=== PATIENT | female | born 1955 | race Caucasian/White ===

== ENCOUNTER 2022-11-01 09:54 | Outpatient (CLI) | payer MEDICARE, BC, SELFPAY ==
--- NOTE | 2022-11-01 10:15 | CRLHL7_ITS ---
For Patients: As a result of the Century Cures Act, medical imaging exams and procedure reports are released immediately into your electronic medical record. You may view this report before your referring provider. If you have questions, please contact your health care provider. BILATERAL SCREENING MAMMOGRAM WITH COMPUTER-AIDED DETECTION AND TOMOSYNTHESIS TECHNIQUE: CC and MLO views were obtained. These mammographic images have been obtained using full-field digital technique. These mammographic images were interpreted with the benefit of computer-aided detection. Breast Tomosynthesis was used in this interpretation. COMPARISON FILM: 09/28/20, 05/17/10. FINDINGS: There are scattered areas of fibroglandular density IMPRESSION: There is no radiographic evidence for malignancy. ASSESSMENT: BI-RADS Category 2: Benign RECOMMENDATION: Routine screening mammogram in 1 year. A lay language report of this examination will be provided to the patient. Aamir De Jesus M.D. Diagnostic Radiologist [email or web address] JACK/evelio Transcribed: 3:12 p.angel fraser/Dictated by: Aamir De Jesus MD @ 11/01/2022 10:56:00 AM (Electronically Signed)
== END 2022-11-01 09:55 | disposition home or self-care (01) ==
PROVIDERS: PCP Family Medicine; Visit Provider Family Medicine
DX: Z12.31 Encounter for screening mammogram for malignant neoplasm of breast (principal)
CPT/HCPCS: 77063; 77067

== ENCOUNTER 2023-07-17 10:28 | Outpatient (CLI) | payer MEDICARE, BC, SELFPAY | END 2023-07-17 10:29 | disposition home or self-care (01) | LOC: NFLDREF 08-06 14:39 | PROVIDERS: PCP Family Medicine; Referring Provider Family Medicine; Visit Provider Family Medicine | DX: E11.9 Type 2 diabetes mellitus without complications (principal); I10 Essential (primary) hypertension; E78.00 Pure hypercholesterolemia, unspecified; Z79.84 Long term (current) use of oral hypoglycemic drugs; Z13.29 Encounter for screening for other suspected endocrine disorder | CPT/HCPCS: 80053; 80061; 82043; 82570; 84443 ==

== ENCOUNTER 2023-10-12 08:42 | Outpatient (CLI) | payer MEDICARE, BC, SELFPAY | END 2023-10-12 08:43 | disposition home or self-care (01) | LOC: NFLDREF 10-14 10:10 | PROVIDERS: PCP Family Medicine; Referring Provider Family Medicine; Visit Provider Family Medicine | DX: E11.9 Type 2 diabetes mellitus without complications (principal); M81.0 Age-related osteoporosis without current pathological fracture; E83.52 Hypercalcemia; Z79.84 Long term (current) use of oral hypoglycemic drugs | CPT/HCPCS: 80053; 82306; 83970 ==

== ENCOUNTER 2023-11-06 08:51 | Outpatient (CLI) | payer MEDICARE, BC, SELFPAY ==
--- NOTE | 2023-11-06 09:15 | CRLHL7_ITS ---
For Patients: As a result of the Cures Act, medical imaging exams and procedure reports are released immediately into your electronic medical record. You may view this report before your referring provider. If you have questions, please contact your health care provider. BILATERAL SCREENING MAMMOGRAM WITH COMPUTER-AIDED DETECTION AND TOMOSYNTHESIS TECHNIQUE: CC and MLO views were obtained. These mammographic images have been obtained using full-field digital technique. These mammographic images were interpreted with the benefit of computer-aided detection. Breast Tomosynthesis was used in this interpretation. COMPARISON FILM: 11/01/22, 09/28/20, 05/17/10. FINDINGS: There are scattered areas of fibroglandular density IMPRESSION: There is no radiographic evidence for malignancy. ASSESSMENT: BI-RADS Category 1: Negative RECOMMENDATION: Routine screening mammogram in 1 year. A lay language report of this examination will be provided to the patient. Aamir De Jesus M.D. Diagnostic Radiologist [email or web address] JACK/evelio Transcribed: 1:59 p.mMatias fraser/Dictated by: Aamir De Jesus MD @ 11/06/2023 11:02:00 AM (Electronically Signed)
--- NOTE | 2023-11-06 09:45 | CRLHL7_ITS ---
For Patients: As a result of the Century Cures Act, medical imaging exams and procedure reports are released immediately into your electronic medical record. You may view this report before your referring provider. If you have questions, please contact your health care provider. DXA BONE MINERAL DENSITY STUDY Reason for exam: Screening. Current height (in): 65. Weight (lb): 250. Menopause age: 52. Ethnicity: White. 1. Have you had a previous hip or vertebral fracture? No. 2. Have you had any fractures during your adult life which did not result from significant trauma (e.g., auto accident)? No. 3. Did either of your parents have a hip fracture? Yes. 4. Do you smoke? No. 5. Have you ever taken Glucocorticoids? No. 6. Do you have rheumatoid arthritis? No. 7. Do you have secondary osteoporosis? No. 8. Do you drink 3 or more alcoholic drinks per day? No. 9. Are you being treated for osteoporosis? No. 10. Have you ever taken any of the following medications: Actonel, Evista, Fosamax, Miacalcin, Reclast, Boniva, Forteo, HRT (i.e., estrogen/hormone therapy), Protelos, Prolia, Vitamin D, Calcium, other ??? please specify. ANSWER: Yes, vitamin D. 11. Do you have any of the following medical conditions: Anorexia or bulimia, asthma or emphysema, end stage renal disease, hyperparathyroidism, any seizure disorders, cancer, inflammatory bowel diseases, hysterectomy, other ??? please specify. ANSWER: No. 12. What was your maximum height (inches)? 66. 13. Do you perform weight bearing exercise regularly? No. 14. Do you regularly consume dairy products? Yes. 15. Do you drink caffeinated beverages? No. 16. At what age did your period start? 14. 17. Are you premenopausal? No. 18. How many full-term pregnancies have you had? 5. 19. Have you ever missed your period for more than 6 months in a row (not including or menopause)? No. TECHNIQUE: Bone mineral density study was performed using the [employer]. FINDINGS: The results of the study expressed as bone mineral density (BMD) are as follows: Lumbar spine L1 to L4: BMD: 1.466 g/cm2. T-score: 3.8. Z-score: 5.7 Neck Left: BMD: 0.874 g/cm2. T-score: 0.2. Z-score: 1.8 Right: BMD: 0.839 g/cm2. T-score: -0.1. Z-score: 1.5 Total Left: BMD: 1.132 g/cm2. T-score: 1.6. Z-score: 2.9 Right: BMD: 1.045 g/cm2. T-score: 0.8. Z-score: 2.2 IMPRESSION: Normal bone density. *Comparison exams done prior to 09/2019 were performed on different unit, Right90. Aamir De Jesus M.D. Diagnostic Radiologist [email or web address] JACK/evelio fraser/Dictated by: Aamir De Jesus MD @ 11/06/2023 11:30:00 AM (Electronically Signed)
== END 2023-11-06 08:52 | disposition home or self-care (01) ==
LOC: MAMMO 08:52
PROVIDERS: PCP Family Medicine; Visit Provider Family Medicine
DX: Z12.31 Encounter for screening mammogram for malignant neoplasm of breast (principal); Z13.820 Encounter for screening for osteoporosis; Z78.0 Asymptomatic menopausal state
CPT/HCPCS: 77063; 77067; 77080

== ENCOUNTER 2023-12-20 11:50 | Outpatient (CLI) | payer MEDICARE, BC, SELFPAY ==
--- NOTE | 2023-12-20 12:26 | W.ANESCHARGE ---
Anesthesia Charges Start Date/Time Anesthesia Start Date: 12/20/23 Anesthesia Start Time: 13:00 Stop Date/Time Anesthesia Stop Date: 12/20/23 Anesthesia Stop Time: 13:51
--- NOTE | 2023-12-20 13:55 | W.ANESCHARGE ---
Anesthesia Charges Start Date/Time Anesthesia Start Date: 12/20/23 Anesthesia Start Time: 13:00 Stop Date/Time Anesthesia Stop Date: 12/20/23 Anesthesia Stop Time: 13:51
== END 2023-12-20 11:51 | disposition home or self-care (01) ==
LOC: OP CLINIC 11:51
PROVIDERS: PCP Family Medicine; Visit Provider Surgery
DX: R19.5 Other fecal abnormalities (principal); K63.89 Other specified diseases of intestine; D12.2 Benign neoplasm of ascending colon; D12.3 Benign neoplasm of transverse colon; D12.4 Benign neoplasm of descending colon; D12.7 Benign neoplasm of rectosigmoid junction
CPT/HCPCS: 00811; 45380; 45385; 88305; J2371; J2704; J3490

== ENCOUNTER 2024-01-22 08:38 | Outpatient (CLI) | payer MEDICARE, BC, SELFPAY | END 2024-01-22 08:39 | disposition home or self-care (01) | LOC: NFLDREF 01-23 10:12 | PROVIDERS: PCP Family Medicine; Referring Provider Family Medicine; Visit Provider Family Medicine | DX: E11.65 Type 2 diabetes mellitus with hyperglycemia (principal); I10 Essential (primary) hypertension | CPT/HCPCS: 80053 ==

== ENCOUNTER 2024-04-25 09:16 | Outpatient (CLI) | payer MEDICARE, BC, SELFPAY | END 2024-04-25 09:17 | disposition home or self-care (01) | LOC: NFLDREF 04-26 16:50 | PROVIDERS: PCP Family Medicine; Referring Provider Family Medicine; Visit Provider Family Medicine | DX: I10 Essential (primary) hypertension (principal); M81.0 Age-related osteoporosis without current pathological fracture; E55.9 Vitamin D deficiency, unspecified; E11.65 Type 2 diabetes mellitus with hyperglycemia | CPT/HCPCS: 80053; 82306 ==

== ENCOUNTER 2024-11-03 08:30 | Outpatient (CLI) | payer MEDICARE, BC, SELFPAY | END 2024-11-03 08:31 | disposition home or self-care (01) | LOC: NFLDREF 11-04 15:23 | PROVIDERS: PCP Family Medicine; Referring Provider Family Medicine; Visit Provider Family Medicine | DX: E78.5 Hyperlipidemia, unspecified (principal); E11.65 Type 2 diabetes mellitus with hyperglycemia; I10 Essential (primary) hypertension; E55.9 Vitamin D deficiency, unspecified | CPT/HCPCS: 80053; 80061; 82043; 82306; 82570 ==

== ENCOUNTER 2024-12-29 06:23 | Outpatient (CLI) | payer MEDICARE, BC, SELFPAY ==
[2024-12-29 08:39] VITALS: BMI 46.7
== END 2024-12-29 06:24 | disposition home or self-care (01) ==
LOC: NUTRITION 06:24
PROVIDERS: PCP Family Medicine; Visit Provider Dietitian, Registered
DX: E66.9 Obesity, unspecified (principal); Z68.42 Body mass index [BMI] 45.0-49.9, adult; Z71.3 Dietary counseling and surveillance
CPT/HCPCS: G0463

== ENCOUNTER 2025-01-07 09:17 | Outpatient (CLI) | payer MEDICARE, BC, SELFPAY ==
[2025-01-07 08:01] VITALS: BMI 50.3
== END 2025-01-07 09:18 | disposition home or self-care (01) ==
LOC: NUTRITION 09:20
PROVIDERS: PCP Family Medicine; Visit Provider Dietitian, Registered
DX: E66.9 Obesity, unspecified (principal); Z68.42 Body mass index [BMI] 45.0-49.9, adult; Z71.3 Dietary counseling and surveillance
CPT/HCPCS: G0463

== ENCOUNTER 2025-02-02 08:40 | Outpatient (CLI) | payer MEDICARE, BC, SELFPAY | END 2025-02-02 08:41 | disposition home or self-care (01) | LOC: NFLDREF 02-03 18:08 | PROVIDERS: PCP Family Medicine; Referring Provider Family Medicine; Visit Provider Family Medicine | DX: E55.9 Vitamin D deficiency, unspecified (principal); E11.65 Type 2 diabetes mellitus with hyperglycemia; I10 Essential (primary) hypertension; R74.8 Abnormal levels of other serum enzymes | CPT/HCPCS: 80053; 80061; 82043; 82306; 82570; 82607 ==

== ENCOUNTER 2025-03-09 08:48 | Outpatient (CLI) | payer MEDICARE, BC, SELFPAY ==
--- NOTE | 2025-03-09 09:15 | CRLHL7_ITS ---
For Patients: As a result of the Century Cures Act, medical imaging exams and procedure reports are released immediately into your electronic medical record. You may view this report before your referring provider. If you have questions, please contact your health care provider. INDICATION: BILATERAL SCREENING MAMMOGRAM, ASYMPTOMATIC 70 Y/O FEMALE COMPARISON: 11/06/2023, 11/01/2022, 09/28/2020 TECHNIQUE: Digital mammogram in CC and MLO projections including computer-aided detection (CAD) and tomosynthesis. BREAST COMPOSITION: There are scattered areas of fibroglandular density. FINDINGS: No suspicious findings. ASSESSMENT: BI-RADS 1 Negative RECOMMENDATION: Annual screening mammogram. A lay language report of this examination will be provided to the patient. Dictated by: Aamir De Jesus MD @ 03/09/2025 09:37:06 (Electronically Signed)
--- NOTE | 2025-03-09 11:55 | P.NUTOUT_ITS ---
IBT Outpt Nutrition Assessment Nutrition Intake Reason for referral: Z68.42 BMI 45-49.9 Referring provider: Dr. 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 Food/Nutrition Related History: Diane attended appointment alone. Weight today is 281.2 lbs which is up 4 lbs from last visit weight of 277.8 lbs and remains down 1.4 lbs from first visit/start weight of 283.2 lbs. Diane reports 4 days of holiday type eating, rich foods--butter, gravy. She is hoping for a few normal weeks prior to . It is also a tough season related to the loss of her . She feels overall she ate the same way as previous years Thanksgivings--mostly habit--difficult emotionally. She did report working on some regular exercises at least 4 days since last visit. She has been shoveling on and off over the past few days also. She has a plan for walking in the house and garage now that everything is put away from Thanksgiving. Again, Diane reports doing well with not overeating at home by herself. It is harder when she is eating with others and when eating out. Patient Data Patient Gender: F Patient Age: 70 Height: 5 ft 2.5 in Weight: 281 lb 8 oz Weight Calculations Body Mass Index: 50.6 [place] Body Weight (lbs): 112.50 [place] Body Weight (kg): 51.03 Percent of [place] Body Weight: 250 Adjusted Body Weight (lbs): 154.75 Adjusted Body Weight (kg): 70.19 Basal Energy Expenditure (BEE): 1829.39 Basal Energy Expenditure (BEE) Adjusted Weight: 1302.05 Assist/Advise/Intervention Learning Needs Assessment: Action Problem/Etiology/Signs/Symptoms: Obesity related to excess intake compared to output as evidenced by a BMI over 45. Intervention: Today we discussed getting back on track and being patient with herself and the process. In addition, discussed what's working, challenges and goals. Evaluation of Comprehension: Verbalize understanding and Reinforcement needed Teaching Methods: Verbal, Handout and Reinforcement Nutrition Agree/Plan Goals to Achieve Outcome: 1.Ask myself Am I hungry? 2.Stick to a routine of regular meals each day. 3.Continue with regular chores that involve walking and moving on her 1 [place]/2 acres or inside. 4.Include protein every time eat. 5.Chair exercises most days of the week. Arrange/Follow-up Information Provided to Patient: RDN's contact info shared Follow-up Appointment: 03/25/25 at 9 am. Professional Services Provided Time spent with patient (min): 30 Coding Visit Code IBT Visit: IBT
== END 2025-03-09 08:49 | disposition home or self-care (01) ==
PROVIDERS: PCP Family Medicine; Visit Provider Family Medicine
DX: Z12.31 Encounter for screening mammogram for malignant neoplasm of breast (principal)
CPT/HCPCS: 77063; 77067